=== PATIENT | female | born 1970 | race Caucasian/White ===

== ENCOUNTER 2020-01-05 14:31 | Emergency (ER) | payer OTHER, SELFPAY ==
[~2020-01-05] VITALS: Ht 172.7 cm; Wt 77.1 kg
[2020-01-05 14:42] VITALS: Ht 172.7 cm; Wt 77.1 kg
[2020-01-05 15:36] VITALS: BP 124/81
== END 2020-01-05 15:36 | disposition home or self-care (01) ==
LOC: ED 14:31
DX: R05 Cough (principal); J02.9 Acute pharyngitis, unspecified; Z20.828 Contact with and (suspected) exposure to other viral communicable diseases

== ENCOUNTER 2020-02-15 18:56 | Emergency (ER) | payer OTHER, SELFPAY ==
[~2020-02-15] VITALS: Ht 172.7 cm; Wt 85.3 kg
[2020-02-15 18:58] VITALS: Ht 172.7 cm; Wt 85.3 kg
[2020-02-15 19:49] VITALS: BP 139/86
== END 2020-02-15 19:49 | disposition home or self-care (01) ==
LOC: ED 18:56
DX: M79.10 Myalgia, unspecified site (principal); R50.9 Fever, unspecified; R53.1 Weakness; J02.9 Acute pharyngitis, unspecified; Z20.828 Contact with and (suspected) exposure to other viral communicable diseases
CPT/HCPCS: U0003-CS